=== PATIENT | female | born 1950 | race Asian ===

== ENCOUNTER 2018-07-30 11:55 | Emergency (ER) | payer MEDICARE, OTHER ==
[~2018-07-30] VITALS: Ht 160 cm; Wt 81.4 kg
[~2018-07-30 11:55] MED LIST: AMLOPIDINE PO; BENAZEPRIL; FUROSEMIDE; zocor
[2018-07-30 12:06] VITALS: TEMP 98
[2018-07-30] MEDS ORDERED: GLUCOPHAGE500 MG/TAB PO (12:33)
[2018-07-30] MEDS ORDERED: ZOCOR 10MG10 MG PO (12:33)
[2018-07-30] MEDS ORDERED: TOPROL XL 25MG25 MG PO (12:34)
[2018-07-30] MEDS ORDERED: COZAAR100 MG PO (12:34)
[2018-07-30 13:15] VITALS: BP 184/69; PULSE 68
== END 2018-07-30 13:15 | disposition home or self-care (01) ==
LOC: COL.ER 11:55
DX: S61.412A Laceration without foreign body of left hand, initial encounter (principal); I10 Essential (primary) hypertension; E11.9 Type 2 diabetes mellitus without complications; E78.5 Hyperlipidemia, unspecified; Z90.710 Acquired absence of both cervix and uterus; Z23 Encounter for immunization; Z79.84 Long term (current) use of oral hypoglycemic drugs; W26.8XXA Contact with other sharp object(s), not elsewhere classified, initial encounter; Y92.009 Unspecified place in unspecified non-institutional (private) residence as the place of occurrence of the external cause